=== PATIENT | female | born 1950 | race African-American/Black ===

== ENCOUNTER 2020-10-08 12:34 | Emergency (ER) | payer MEDICARE, BC ==
[~2020-10-08] VITALS: Ht 165.1 cm; Wt 76.0 kg
[2020-10-08] MEDS ORDERED: NITROGLYCERIN OINT 1GM/INCH UDPKT TD ONE (13:15)
[2020-10-08] MEDS ORDERED: ASPIRIN 81MG TABLET PO ONE (13:15)
[2020-10-08 13:35] LABS: BASOPHILS % 0.9 % (0.0-2.0); EOSINOPHILS % 4.4 % (0.0-5.0); HEMATOCRIT. 30.9 % (36.0-48.0); HEMOGLOBIN. 10.4 g/dL (12.0-16.0); MEAN CORPUSCULAR HEMOGLOBIN 30.5 pg (28.0-32.0); MEAN CORPUSCULAR VOLUME 90.7 fL (81.0-99.0); MEAN PLATELET VOLUME 7.6 fl (7.4-10.4); MONOCYTES % 7.2 % (2.0-8.0); NEUTROPHILS % 58.5 % (40.0-76.0); PLATELET 270 x1000/uL (130-400); RED CELL DISTRIBUTION WIDTH 14.4 % (11.6-14.6)
[2020-10-08 13:39] LABS: CHLORIDE 105 mEq/L (98-107); PROTHROMBIN TIME 10.5 sec (9.6-11.0)
[2020-10-08 13:49] LABS: CREATINE KINASE 184 IU/L (26-192)
[2020-10-08] MEDS ORDERED: MORPHINE SULFATE 2 MG/ML CPJ (NOT FOR IM USE) IV ONE (15:00)
[2020-10-08 17:00] VITALS: BP 144/68
[2020-10-08] MEDS ORDERED: IOHEXOL-350 100 ML BOTTLE ONE (20:12)
== END 2020-10-08 18:11 | disposition home or self-care (01) ==
LOC: ER 12:34
DX: R07.89 Other chest pain (principal); D64.9 Anemia, unspecified; Z79.82 Long term (current) use of aspirin
CPT/HCPCS: 36415; 71045; 71275; 80053; 82550; 83880; 84484; 85025; 85610; 93005; 99285; Q9967